=== PATIENT | female | born 1995 | race American Indian/Alaskan Native ===

== ENCOUNTER 2018-10-25 12:08 | Emergency (ER) | payer OTHER ==
[2018-10-25 12:19] VITALS: BP 116/44
--- NOTE | 2018-10-25 12:19 | Event Note ---
ED Screening Note ED Screening Note: Irreg periods for 2 months no home preg test This initial assessment/diagnostic orders/clinical plan/treatment(s) is/are subject to change based on patients health status, clinical progression and re- assessment by fellow clinical providers in the ED. Further treatment and workup at subsequent clinical providers discretion. Patient/guardian urged not to elope from the ED as their condition may be serious if not clinically assessed and managed. Initial orders include: jus preg then send obgyn
[2018-10-25 13:05] LABS: Bilirubin,Urine NEG (Negative); Blood,Urine MOD (Negative); Color,Urine Yellow (Yellow); Protein,Urine <15 mg/dL mg/dL (Negative); RBC,Urine < 1.0 /HPF (0.0-6.0); Urobilinogen,Urine < 2.0 mg/dL (<2.0)
[2018-10-25 13:09] LABS: HCG Qualitative,Urine Negative (Negative)
--- NOTE | 2018-10-25 13:34 | Emergency Department Report ---
ED Dysuria HPI - HPI Chief Complaint: Vaginal Bleeding Stated Complaint: HEADACHE/VAGINAL BLEEDING Time Seen by Provider: 10/25/18 12:18 Severity: Mild Symptoms: Dysuria: No, Frequency: No, Suprapubic Pain: No, Flank Pain: No, Fever: No, Hematuria: No, Abdominal Pain: No, Previous UTI's: No Other History: PT TO ER WITH IRREG PERIODS. SHE IS 1 Y POST . WAS ON PILL RECENTLY AND STOPPED BC OF ACNE. SHE HAS ALWAYS HAD IRREG PERIODS AND HAS TRIED NUMEROUS BCP. ED Review of Systems ROS: Stated complaint: HEADACHE/VAGINAL BLEEDING Other details as noted in HPI Comment: All other systems reviewed and negative ED Past Medical Hx - Past Medical History Previous Medical History?: No - Surgical History Past Surgical History?: No - Family History Family history: no significant - Social History Smoking Status: Never Smoker Substance Use Type: None Dysuria Exam - Exam General: Vital signs noted. No distress. Alert and acting appropriately. Exam: Yes Moist Mucous Membranes, No CVA Tenderness, No Abdominal Tenderness, No Rigidity or Guarding Labs: Lab Results 10/25/18 Range/Units 12:44 Urine Color Yellow (Yellow) Urine Turbidity Clear (Clear) Urine pH 7.0 (5.0-7.0) Ur Specific Burna 1.021 (1.003-1.030) Urine Protein <15 mg/dl (Negative) mg/dL Urine Glucose (UA) Neg (Negative) mg/dL Urine Ketones Neg (Negative) mg/dL Urine Blood Mod (Negative) Urine Nitrite Neg (Negative) Urine Bilirubin Neg (Negative) Urine Urobilinogen < 2.0 (<2.0) mg/dL Ur Leukocyte Esterase Neg (Negative) Urine WBC (Auto) 1.0 (0.0-6.0) /HPF Urine RBC (Auto) < 1.0 (0.0-6.0) /HPF U Epithel Cells (Auto) 10.0 (0-13.0) /HPF Urine HCG, Qual Negative (Negative) ED Course Vital Signs 10/25/18 12:16 Temperature 97.6 F Pulse Rate 75 Respiratory 16 Rate Blood Pressure 116/44 O2 Sat by Pulse 98 Oximetry ED Medical Decision Making - Medical Decision Making Labs 10/25/18 12:44 Urine Color Yellow Urine Turbidity Clear Urine pH 7.0 Ur Specific Burna 1.021 Urine Protein <15 mg/dl Urine Glucose (UA) Neg Urine Ketones Neg Urine Blood Mod Urine Nitrite Neg Urine Bilirubin Neg Urine Urobilinogen < 2.0 Ur Leukocyte Esterase Neg Urine WBC (Auto) 1.0 Urine RBC (Auto) < 1.0 U Epithel Cells (Auto) 10.0 Urine HCG, Qual Negative Vital Signs 10/25/18 12:16 Temperature 97.6 F Pulse Rate 75 Respiratory 16 Rate Blood Pressure 116/44 O2 Sat by Pulse 98 Oximetry PREG NEG URINE NOTED VSS NO TACHY NO HYPOTENSION PERIODS IRREG ON AND OFF FOR A DAY OR 2 EVERY COUPLE WEEKS NO HEAVY BLEEDING NO ABD PAIN NO CVA TENDERNESS NO VAG DC NOT CONCERNED FOR STI EDUCATED ON OB/ER FOR HORMONE REGULATION VERBALIZES UNDERSTANDING WILL DC HOME WITH OBGYN REFERRAL. Critical care attestation.: If time is entered above; I have spent that time in minutes in the direct care of this critically ill patient, excluding procedure time. ED Disposition Clinical Impression: Dysmenorrhea Disposition: DC-01 TO HOME OR SELFCARE Is pt being admited?: No Condition: Stable Instructions: Dysmenorrhea (ED) Additional Instructions: SEE OBGYN WE DISCUSSED. Referrals: LUZ MARIA CALZADA MD [Staff Physician] - 3-5 Days KASEY PARRA MD [Staff Physician] - 3-5 Days Time of Disposition: 13:31
== END 2018-10-25 13:49 | disposition home or self-care (01) ==
LOC: ED 12:08
DX: N94.6 Dysmenorrhea, unspecified (principal)
CPT/HCPCS: 81001; 81025; 99283